=== PATIENT | female | born 1985 | race Caucasian/White ===

== ENCOUNTER 2021-10-30 07:05 | Inpatient (IN) | payer SELFPAY ==
[2021-10-30] MEDS ORDERED: Sodium Chloride 0.9% 10 ML Syringe FLUSH PRN (08:49)
[2021-10-30] MEDS ORDERED: Acetaminophen 325 MG Tab PO PRN (08:49)
[2021-10-30] MEDS ORDERED: Ondansetron 4 MG/2 ML SDV IVPUSH PRN (08:51)
[2021-10-30] MEDS ORDERED: Carboprost Tromethamine 250 MCG/1 ML Amp IM PRN (08:51)
[2021-10-30] MEDS ORDERED: Methylergonovine 0.2 MG/1 ML Amp IM PRN (08:51)
[2021-10-30] MEDS ORDERED: Tranexamic Acid 1,000 MG in Sodium Chloride 0.9% 100 ML IV PRN (08:51)
[2021-10-30] MEDS ORDERED: Nalbuphine 20 MG/1 ML Amp IM PRN (08:51)
[2021-10-30] MEDS ORDERED: Misoprostol 400 MCG (4 X 100 MCG TAB) RECTAL PRN (08:51)
[2021-10-30] MEDS ORDERED: Lidocaine 1% 30 ML SDV INJECT PRN (08:51)
[2021-10-30] MEDS ORDERED: Lactated Ringers 1,000 ML IV SCH (09:00)
[2021-10-30] MEDS ORDERED: Oxytocin/Normal Saline 30 UNIT/500 ML BAG IV SCH (09:00)
[2021-10-30] MEDS: Sodium Chloride 0.9% 10 ML Syringe FLUSH SCH (09:01)
[2021-10-30] MEDS: Lactated Ringers 1,000 ML IV SCH ×4 (09:38→22:39)
[2021-10-31] MEDS ORDERED: Oxytocin 10 Units/1 ML SDV IM PRN (00:21)
[2021-10-31] MEDS ORDERED: Acetaminophen 325 MG Tab PO PRN (00:21)
[2021-10-31] MEDS ORDERED: Benzocaine/Menthol 20%-0.5% Spray 78 GM Cannister TOP PRN (00:21)
[2021-10-31] MEDS ORDERED: Simethicone 80 MG Tab.Chew PO PRN (00:21)
[2021-10-31] MEDS: Sodium Chloride 0.9% 10 ML Syringe FLUSH SCH ×3 (03:31→22:11)
[2021-10-31] MEDS: Prenatal Multivitamin with Calcium/Folic Acid/Iron Tab PO SCH (08:53)
[2021-10-31] MEDS: Ibuprofen 800 MG Tab PO PRN ×3 (08:53→23:57)
[2021-10-31] MEDS: Docusate Sodium 100 MG Cap PO PRN ×2 (08:53→22:30)
[2021-11-01] MEDS: Ibuprofen 800 MG Tab PO PRN (06:29)
[2021-11-01] MEDS: Docusate Sodium 100 MG Cap PO PRN (08:13)
[2021-11-01] MEDS: Prenatal Multivitamin with Calcium/Folic Acid/Iron Tab PO SCH (08:23)
[2021-11-01 08:47] VITALS: BP 105/59; PULSE 78
[2021-11-01] MEDS ORDERED: Measles, Mumps & Rubella Vaccine 0.5 ML SDV SUBCUT ONE (11:56)
== END 2021-11-01 15:45 | disposition home or self-care (01) | DRG 807 ==
LOC: DL.OBCHECK 07:05 → UNDOADMOB 07:56 → DL.OB 07:56 → OBSVTOIN 10-31
PROVIDERS: ADMIT Family Medicine; ATTEND Family Medicine
PROC: 10E0XZZ Delivery of Products of Conception, External Approach (ICD-10-PCS; principal; 2021-10-31)
PROC: 10907ZC Drainage of Amniotic Fluid, Therapeutic from Products of Conception, Via Natural or Artificial Opening (ICD-10-PCS; 2021-10-31)
DX: O99.02 Anemia complicating childbirth (principal); Z37.0 Single live birth; Z3A.39 39 weeks gestation of pregnancy; O99.344 Other mental disorders complicating childbirth; D64.9 Anemia, unspecified; F41.9 Anxiety disorder, unspecified; Z20.822 Contact with and (suspected) exposure to COVID-19
CPT/HCPCS: 36415; 51701; 59409; 76815; 85027; 90471; 90707; A9270-GY; J2405; J2590; J7120; U0002